=== PATIENT | female | born 1945 | race Caucasian/White ===

== ENCOUNTER → 2020-08-24 | Outpatient (CLI) | payer MEDICARE ==
[~2020-08-24] MED LIST: ATOR10 PO; CARV25 PO; FURO40 PO; LISI5 PO; XARELTO20 MG PO
== END | disposition home or self-care (01) ==
LOC: PLD 15:44
DX: N39.0 Urinary tract infection, site not specified (principal)
CPT/HCPCS: 87077; 87086; 87186

== ENCOUNTER 2023-04-22 08:54 | Day surgery (SDC) | payer MEDICARE ==
[2023-04-22] VITALS (7 sets, daily range): BP systolic 106–155; BP diastolic 43–90
[~2023-04-22 08:54] MED LIST changes: +WARF5 PO
--- NOTE | 2023-04-22 10:45 | NUR ---
PATIENT RETURNED FROM [facility]IA [facility] WITH A TR BAND IN PLACE. 10 ML OF AIR IN THE BAND. SITE CHECKED AND NO BLEEDING, NO HEMATOMA NOTED. PATIENT PLACED ON THE MONITOR AND CALL LIGHT IN REACH. AT THE BEDSIDE.
--- NOTE | 2023-04-22 11:13 | NUR ---
TR BAND RIGHT RADIAL SITE CDI, NO BLEEDING NO HEMATOMA. PLETH WITH GOOD WAVEFORM.
--- NOTE | 2023-04-22 11:49 | NUR ---
AIR REMOVED FROM THE TR BAND. TR BAND FLAT AND NO BLEEDING. NO HEAMTOMA NOTED. LOW HR OF 40 NOTED ON MONITOR.
--- NOTE | 2023-04-22 12:05 | NUR ---
LUNCH SERVED. ONCE ACTIVITY NOTED HR INCREASED.
--- NOTE | 2023-04-22 12:14 | NUR ---
DR. GAMEZ NOTIFIED OF LOW HR, ASYMPTOMATIC, AT REST. NO NEW ORDERS.
--- NOTE | 2023-04-22 12:51 | NUR ---
TR BAND REMOVED AND RIGHT RADIAL CLEANED. CLOTH DOT APPLIED. WHITE BOARD REAPPLIED. PIV REMOVED AND CATH TIP INTACT. PRESSURE DRESSING APPLIED. VVS. PATIENT ALLOWED TO GET UP ADN DRESSED WITH 'S ASSIST. ALL DISCHARGE INSTRUCTIONS WERE REVIEWED AND QUESTIONS ANSWERED AND COPIES GIVEN TO THE PATIENT.
--- NOTE | 2023-04-22 13:16 | NUR ---
PATIENT DISCHARGED HOME VIA WHEELCHAIR WITH
== END 2023-04-22 13:00 | disposition home or self-care (01) ==
LOC: MHTC 08:54
DX: R06.09 Other forms of dyspnea (principal); I25.10 Atherosclerotic heart disease of native coronary artery without angina pectoris; I10 Essential (primary) hypertension; I48.20 Chronic atrial fibrillation, unspecified; I42.9 Cardiomyopathy, unspecified; E78.5 Hyperlipidemia, unspecified
CPT/HCPCS: 76937; 93458; 99152; C1769; C1887; C1894; J1644; J2250; J3010; J7030; J7050; Q9967

== ENCOUNTER 2023-06-20 11:26 | Observation (INO) | payer MEDICARE ==
[~2023-06-20] VITALS: Ht 160 cm; Wt 61.7 kg
[2023-06-20] VITALS (8 sets, daily range): BP systolic 96–171; BP diastolic 71–97
[~2023-06-20 11:26] MED LIST changes: -CARV25 PO; +CARV6.25 PO
[2023-06-20 12:20] LABS: BASOPHILS ABSOLUTE AUTO 0.05 K/mm3 (0.00-0.23); BASOPHILS PERCENT AUTO 1 % (0-2); EOSINOPHILS ABSOLUTE AUTO 0.26 K/mm3 (0.00-0.68); EOSINOPHILS PERCENT AUTO 3 % (0-6); Hematocrit 41.3 % (33.0-51.0); Hemoglobin 14.3 g/dL (11.5-16.0); IMMATURE GRAN ABSOLUTE AUTO 0.03 K/mm3 (0.00-0.10); IMMATURE GRAN PERCENT AUTO 0 % (0-1); LYMPHOCYTES ABSOLUTE AUTO 2.16 K/mm3 (0.84-5.20); LYMPHOCYTES PERCENT AUTO 27 % (21-46); MONOCYTES ABSOLUTE AUTO 0.53 K/mm3 (0.16-1.47); MONOCYTES PERCENT AUTO 7 % (4-13); Mean Corpuscular HGB 32.4 pg (26.0-34.0); Mean Corpuscular HGB Conc 34.6 g/dL (31.5-36.5); Mean Corpuscular Volume 93 fL (80-100); NEUTROPHILS ABSOLUTE AUTO 4.95 K/mm3 (1.96-9.15); NEUTROPHILS PERCENT AUTO 62 % (41-73); RDW Coefficient Variation 12.4 % (11.7-14.2); RDW Standard Deviation 42.9 fL (35.1-46.3); Red Blood Cell Count 4.42 M/mm3 (3.80-5.20); White Blood Cell Count 7.98 K/mm3 (4.00-11.30)
[2023-06-20 12:28] LABS: Albumin, Blood 3.6 g/dL (3.4-5.0); Bun/Creatinine Ratio 25.2 (12.0-20.0); Calcium, Blood 9.2 mg/dL (8.5-10.1); Creatinine, Blood 0.75 mg/dL (0.40-1.00); Globulin, Blood 3.5 g/dL (2.2-4.0); Potassium, Blood 3.9 mmol/L (3.5-5.5); Total Protein, Blood 7.1 g/dL (6.4-8.2)
[2023-06-20 15:12] LABS: Source, Urine Clean Catch
[2023-06-20 15:46] LABS: Appearance, Urine Clear (Clear); Bilirubin, Urine Neg (Neg); Blood, Urine Neg (Neg); Color, Urine Yellow (P-Yellow); Glucose Qualitative, Urine Neg (Neg); Ketones, Urine 2+ (Neg); Leukocyte Esterase, Urine 1+ (Neg); Nitrite, Urine Neg (Neg); Protein, Urine Neg (Neg); Urobilinogen, Urine NORM (Normal)
[2023-06-20 16:15] LABS: Bacteria Rare /hpf; Red Blood Cells, Urine 0-2 /hpf (0-2); Squamous Epithelial Cells Rare /hpf (Few)
[2023-06-20 20:21] LABS: International Normalized Ratio 2.49; Prothrombin Time Results 24.8 Sec (9.7-11.5)
--- NOTE | 2023-06-20 20:40 | NUR ---
ASSUMPTION OF CARE: RECEIVED REPORT FROM ER NURSE ERNESTO AT APPROX 2030. PT ARRIVED TO PCU VIA WHEELCHAIR. ALERT AND ORIENTED TO TIME, PERSON, PLACE AND SITUATION. ABLE TO ANSWER QUESTIONS AND MAKE NEEDS KNOWN. ABLE TO STAND AND TRANSFER TO BED WITH NURSE ASSIST. DENIES ANY DIZZINESS, LIGHTHEADEDNESS AT THIS TIME. 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 DENIES ANY CHEST PAIN OR PRESSURE. SBP 150'S. ON RA WITH SPO2 >95%. NO C/O SOB. ABLE TO AMBULATE TO THE BATHROOM WITH ASSISTANCE, VOIDING YELLOW URINE WITH NO ISSUES. 20 GAUGE PIV TO THE RIGHT AC. FLUSHES AND DRAWS WELL WITH NO COMPLAINTS. SALINE LOCKED AT THIS TIME. ABLE TO TAKE PO MEDS WITH NO ISSUES. AT THE BEDSIDE, UPDATED TO PLAN OF CARE. PT HAS ALL BELONGINGS WITH HER AT THIS TIME.
[2023-06-21] VITALS (8 sets, daily range): BP systolic 99–159; BP diastolic 41–81
[2023-06-21 04:34] LABS: International Normalized Ratio 2.42; Prothrombin Time Results 24.2 Sec (9.7-11.5)
--- NOTE | 2023-06-21 06:15 | NUR ---
SHIFT SUMMARY: PT ALERT AND ORIENTED X4 T/O THE SHIFT. ABLE TO ANSWER QUESTIONS, FOLLOW COMMANDS AND MAKE NEEDS KNOWN. REMAINS ON RA WITH SATS >94%. DENIES SOB. CARDIAC MONITORING IN PLACE, ATRIAL FIBRILLATION WITH RATE 70'S-80'S. SBP 120'S. DENIES CHEST PAIN, PRESSURE OR LIGHTHEADEDNESS. ABLE TO AMBULATE TO THE BATHROOM WITH A MINIMAL ASSIST. VOIDING YELLOW URINE. NO BM T/O THE SHIFT. RAC PIV REMAINS IN TACT AND SALINE LOCKED. ABLE TO REPOSITION SELF IN BED T/O THE SHIFT. ABLE TO TOLERATE PO MEDS AND WATER. CALL LIGHT IN REACH.
--- NOTE | 2023-06-21 07:52 | NUR ---
Pt reports no pain/dyspnea/discomfort. STates that she takes coumadin for her afib; last dose was Saturday at home. Reports annual echocardiogram and also angiogram last month.
--- NOTE | 2023-06-21 10:52 | NUR ---
[address] and Dr[address] Reddy, pt can eat. Cardiology will be around to see her later today. Dr. Caldwell rounded on the pt.
--- NOTE | 2023-06-21 11:00 | NUR ---
Pt reports that she started having a headache across her forehead about half an hour ago, and it is coming and going, but also giving her blurry vision. No other symptoms at this time. States that she does not normally get headaches, and that although she drinks coffee every morning, she has not skipped her coffee.
--- NOTE | 2023-06-21 11:22 | NUR ---
Dr. Caldwell was notified by phone of pt's symptoms earlier.
--- NOTE | 2023-06-21 11:45 | NUR ---
Pt states that she is having an odd feeling in her head, almost as if the headache is starting up again, and that her eyes feel funny. Neuro checks done, all WNL. Notified by cath lab tech that heart rate briefly dropped to 40s, and is now 55-61 bpm. Noted blood pressure has dropped significantly since this morning, from 159/96 to now 99/51, after taking 12.5 mg coreg. Pt states that her syncopal episode yesterday took place about an hour after she took her morning medications. Reinforced to patient that she should request staff assistance during transfers to and from the bathroom and bed to avoid any injury from falling or loss of consciousness. She verbalized assent. This was all reported to Dr. Caldwell by phone.
--- NOTE | 2023-06-21 16:00 | NUR ---
Standing blood pressure after 5 minutes: 140/81, heart rate 74 bpm Lying blood pressure after 5 minutes: 143/69 , heart rate [address] Coker instructions, with him at the bedside.
--- NOTE | 2023-06-21 16:06 | NUR ---
Dr. Reddy was here to see the patient.
--- NOTE | 2023-06-21 19:07 | NUR ---
Telephone report given to DEUCE Ramirez. The pt and her are in the room. She reports no symptoms. Suggested orthostatic vital signs to be taken by maintenance supervisor 2nd shift RN, and also encouraged pt to ambulate with staff standby assistance to evaluate her syptoms with change in Coreg dose.
[2023-06-22 00:24] VITALS: BP 144/76
[2023-06-22 03:51] VITALS: BP 148/80
[2023-06-22 04:14] LABS: International Normalized Ratio 1.91; Prothrombin Time Results 19.3 Sec (9.7-11.5)
[2023-06-22 04:15] LABS: BASOPHILS ABSOLUTE AUTO 0.04 K/mm3 (0.00-0.23); BASOPHILS PERCENT AUTO 1 % (0-2); EOSINOPHILS ABSOLUTE AUTO 0.36 K/mm3 (0.00-0.68); EOSINOPHILS PERCENT AUTO 5 % (0-6); Hematocrit 37.7 % (33.0-51.0); Hemoglobin 12.8 g/dL (11.5-16.0); IMMATURE GRAN ABSOLUTE AUTO 0.03 K/mm3 (0.00-0.10); IMMATURE GRAN PERCENT AUTO 0 % (0-1); LYMPHOCYTES ABSOLUTE AUTO 2.86 K/mm3 (0.84-5.20); LYMPHOCYTES PERCENT AUTO 36 % (21-46); MONOCYTES ABSOLUTE AUTO 0.65 K/mm3 (0.16-1.47); MONOCYTES PERCENT AUTO 8 % (4-13); Mean Corpuscular Volume 94 fL (80-100); NEUTROPHILS ABSOLUTE AUTO 3.91 K/mm3 (1.96-9.15); NEUTROPHILS PERCENT AUTO 50 % (41-73); RDW Coefficient Variation 12.3 % (11.7-14.2); RDW Standard Deviation 43.4 fL (35.1-46.3); White Blood Cell Count 7.85 K/mm3 (4.00-11.30)
[2023-06-22 04:26] LABS: Albumin, Blood 2.8 g/dL (3.4-5.0); Albumin/Globulin Ratio 0.9 (0.8-1.8); Bilirubin, Total 0.6 mg/dL (0.1-1.0); Bun/Creatinine Ratio 30.4 (12.0-20.0); Calcium, Blood 8.7 mg/dL (8.5-10.1); Creatinine, Blood 0.89 mg/dL (0.40-1.00); Globulin, Blood 3.2 g/dL (2.2-4.0); Potassium, Blood 4.1 mmol/L (3.5-5.5)
[2023-06-22 04:50] LABS: Mean Platelet Volume 10.5 fL (9.1-12.4)
[2023-06-22 04:51] LABS: Platelet Count 114 K/mm3 (150-400)
--- NOTE | 2023-06-22 06:22 | NUR ---
SHIFT SUMMARY PATIENT ALERT AND ORIENTED X4. HAD NO COMPLAINTS OF CHEST PAIN OR SHORTNESS OF BREATH. ON ROOM AIR WITH SPO2 IN HIGH 90'S. VITAL SIGNS STABLE, RATE CONTROLLED AFIB ON TELE. NO ACUTE ISSUES NOTED OVERNIGHT. WILL CONTINUE TO MONITOR. CALL LIGHT WITHIN REACH.
[2023-06-22 07:11] VITALS: BP 151/75
--- NOTE | 2023-06-22 07:22 | NUR ---
AM NOTE PT IS ALERT AND ORIENTED X 4, SHE IS IN RECLINER CHAIR. SHE REPORTED FEELING A BIT LIGHTHEADED AND SOB WHILE SITTING, BP ASSESSED AND IS STABLE, HR STABLE IN 60'S, SPO2 96% VIA RA, WILL CONTINUE TO MONITOR. SHE IS ABLE TO MAKE HER NEEDS KNOWN, SHE REPORTED AND OCCASSIONAL PRODUCTIVE COUGH BUT STATED "I ALWAYS COUGH UP STUFF IN THE MORNINGS." CALL LIGHT W/IN REACH.
[2023-06-22 08:19] VITALS: BP 115/57
[2023-06-22 10:17] VITALS: BP 139/79
--- NOTE | 2023-06-22 10:23 | NUR ---
CARE NOTE PT WALKED AROUND PCU UNIT W/ SARBJIT AMARO. PER PT REPORT, SHE FELT SLIGHTLY SOB BUT DENIED FEELING LIGHTHEADED/DIZZY. BP AND HR STABLE, SPO2 97% VIA RA.
--- NOTE | 2023-06-22 14:10 | NUR ---
DISCHARGE NOTE PT WAS ALERT AND ORIENTED X 4, VSS. SHE DENIED FEELINGS OF CHEST PAIN/PRESSURE, SHE REPORTED FEELING SLIGHTLY SOB UPON AMBULATION BUT DENIED FEELING LIGHTHEADED/DIZZY. HER WAS ALSO AT BEDSIDE DURING DISCHARGE INSTRUCTIONS. THIS NURSE DISCUSSED D/C INSTRUCTIONS W/ THE PT INCLUDING MEDICATIONS, FOLLOW UP APPOINTMENTS. IV'S WERE REMOVED BY THIS RN. PT LEFT PCU VIA WHEELCHAIR ESCORTED BY THIS RN AT APPROX. 1245. PT WAS STABLE UPON DISCHARGE.
== END 2023-06-22 12:47 | disposition home or self-care (01) ==
LOC: ER 11:26 → PCU 11:27
PROVIDERS: Internal Medicine; Nurse Practitioner Acute Care; Physician Assistant; ADMIT Internal Medicine
DX: I95.1 Orthostatic hypotension (principal); I42.0 Dilated cardiomyopathy; I48.91 Unspecified atrial fibrillation; I13.0 Hypertensive heart and chronic kidney disease with heart failure and stage 1 through stage 4 chronic kidney disease, or unspecified chronic kidney disease; I50.22 Chronic systolic (congestive) heart failure; N18.9 Chronic kidney disease, unspecified; E78.5 Hyperlipidemia, unspecified; E55.9 Vitamin D deficiency, unspecified
CPT/HCPCS: 36415; 80053; 81001; 83690; 83735; 84443; 84484; 85025; 85379; 85610; 87086; 93005; 93010; 93246; 99285-25; A9270; G0378

== ENCOUNTER 2024-03-11 18:18 | Emergency (ER) | payer MEDICARE ==
[~2024-03-11] VITALS: Ht 167.6 cm; Wt 56.7 kg
[2024-03-11 19:42] LABS: BASOPHILS ABSOLUTE AUTO 0.08 K/mm3 (0.00-0.23); BASOPHILS PERCENT AUTO 1 % (0-2); EOSINOPHILS ABSOLUTE AUTO 0.28 K/mm3 (0.00-0.68); EOSINOPHILS PERCENT AUTO 4 % (0-6); Hematocrit 38.2 % (33.0-51.0); Hemoglobin 13.4 g/dL (11.5-16.0); IMMATURE GRAN ABSOLUTE AUTO 0.03 K/mm3 (0.00-0.10); IMMATURE GRAN PERCENT AUTO 0 % (0-1); LYMPHOCYTES ABSOLUTE AUTO 2.51 K/mm3 (0.84-5.20); LYMPHOCYTES PERCENT AUTO 33 % (21-46); MONOCYTES ABSOLUTE AUTO 0.67 K/mm3 (0.16-1.47); MONOCYTES PERCENT AUTO 9 % (4-13); Mean Corpuscular HGB Conc 35.1 g/dL (31.5-36.5); Mean Corpuscular Volume 91 fL (80-100); NEUTROPHILS PERCENT AUTO 54 % (41-73); NRBC ABSOLUTE 0.05 K/mm3 (0.00-0.02); NRBC Auto 0.7 /100 WBC (0.0-0.2); RDW Coefficient Variation 12.7 % (11.7-14.2); RDW Standard Deviation 42.2 fL (35.1-46.3); Red Blood Cell Count 4.19 M/mm3 (3.80-5.20); White Blood Cell Count 7.67 K/mm3 (4.00-11.30)
[2024-03-11 19:44] LABS: International Normalized Ratio 1.45; Prothrombin Time Results 15.1 Sec (9.7-11.5)
[2024-03-11 20:00] LABS: Albumin, Blood 3.4 g/dL (3.4-5.0); Bilirubin, Total 0.8 mg/dL (0.1-1.0); Bun/Creatinine Ratio 32.5 (12.0-20.0); Calcium, Blood 9.5 mg/dL (8.5-10.1); Creatinine, Blood 0.8 mg/dL (0.40-1.00); Globulin, Blood 3.3 g/dL (2.2-4.0); Potassium, Blood 4.1 mmol/L (3.5-5.5); Total Protein, Blood 6.7 g/dL (6.4-8.2)
[2024-03-11 20:45] VITALS: BP 155/64
== END 2024-03-11 21:08 | disposition home or self-care (01) ==
LOC: ER 18:18
PROVIDERS: Emergency Medicine; Physician Assistant
DX: G45.9 Transient cerebral ischemic attack, unspecified (principal); Z79.899 Other long term (current) drug therapy; Z79.01 Long term (current) use of anticoagulants
CPT/HCPCS: 70450; 80053; 85025; 85610; 93005; 93010; 99285-25

== ENCOUNTER 2024-08-26 18:53 | Emergency (ER) | payer MEDICARE ==
[~2024-08-26] VITALS: Ht 154.9 cm; Wt 54.4 kg
[2024-08-26 19:09] VITALS: BP 136/115
[2024-08-26 19:53] LABS: Hemoglobin 14.7 g/dL (11.5-16.0); Mean Corpuscular HGB 33.1 pg (26.0-34.0); Mean Corpuscular HGB Conc 35.9 g/dL (31.5-36.5); Mean Corpuscular Volume 92 fL (80-100); NRBC ABSOLUTE 0.03 K/mm3 (0.00-0.02); NRBC Auto 0.3 /100 WBC (0.0-0.2); RDW Coefficient Variation 12.4 % (11.7-14.2); RDW Standard Deviation 42.3 fL (35.1-46.3); Red Blood Cell Count 4.44 M/mm3 (3.80-5.20); White Blood Cell Count 9.58 K/mm3 (4.00-11.30)
[2024-08-26 20:34] LABS: BASOPHILS PERCENT MAN 0 % (0-2); EOSINOPHILS PERCENT MAN 1 % (0-6); LYMPHOCYTES % ATYPICAL MANUAL 2 % (0-0); LYMPHOCYTES PERCENT MAN 30 % (21-46); MONOCYTES PERCENT MAN 4 % (4-13); SEG NEUTROPHILS PERCENT MAN 63 % (41-73); TOTAL CELLS COUNTED 100
[2024-08-26 20:41] LABS: IMMATURE GRAN ABSOLUTE AUTO 0.16 K/mm3 (0.00-0.10); IMMATURE GRAN PERCENT AUTO 2 % (0-1); LYMPHOCYTES ABSOLUTE AUTO 2.76 K/mm3 (0.84-5.20); LYMPHOCYTES PERCENT AUTO 29 % (21-46); MONOCYTES ABSOLUTE AUTO 0.67 K/mm3 (0.16-1.47); MONOCYTES PERCENT AUTO 7 % (4-13); NEUTROPHILS ABSOLUTE AUTO 5.68 K/mm3 (1.96-9.15); NEUTROPHILS PERCENT AUTO 59 % (41-73)
[2024-08-26 22:28] LABS: Source, Urine Clean Catch
[2024-08-26 22:59] LABS: Bilirubin, Urine Neg (Neg); Blood, Urine Neg (Neg); Glucose Qualitative, Urine Neg (Neg); Ketones, Urine Neg (Neg); Leukocyte Esterase, Urine 2+ (Neg); Nitrite, Urine Neg (Neg); Protein, Urine Neg (Neg); Urobilinogen, Urine NORM (Normal); pH, Urine 6.5 (5.0-8.0)
[2024-08-26 23:00] LABS: Appearance, Urine Clear (Clear); Color, Urine Pale Yellow (P-Yellow)
[2024-08-26 23:02] LABS: Bacteria Mod /hpf; Red Blood Cells, Urine 0-2 /hpf (0-2); Squamous Epithelial Cells Few /hpf (Few); White Blood Cells, Urine 0-2 /hpf (0-5)
== END 2024-08-27 01:05 | disposition home or self-care (01) ==
LOC: ER 18:53
PROVIDERS: Student in an Organized Health Care Education/Training Program
DX: K29.70 Gastritis, unspecified, without bleeding (principal); R91.1 Solitary pulmonary nodule; I48.91 Unspecified atrial fibrillation; I11.0 Hypertensive heart disease with heart failure; I50.9 Heart failure, unspecified; Z86.73 Personal history of transient ischemic attack (TIA), and cerebral infarction without residual deficits; Z79.01 Long term (current) use of anticoagulants; Z79.899 Other long term (current) drug therapy; Z88.8 Allergy status to other drugs, medicaments and biological substances
CPT/HCPCS: 74177; 81001; 83605; 83690; 84484; 85025; 87086; 93005; 93010; 99284-25; Q9967

== ENCOUNTER → 2024-10-01 | Outpatient (CLI) | payer MEDICARE ==
[2024-10-01 14:57] LABS: Bun/Creatinine Ratio 23.9 (12.0-20.0); Calcium, Blood 9.4 mg/dL (8.5-10.1); Creatinine, Blood 0.79 mg/dL (0.40-1.00); Potassium, Blood 4.2 mmol/L (3.5-5.5)
== END ==
LOC: LAB 12:19 → LAB SHORT 12:19
PROVIDERS: Family Medicine
DX: N18.9 Chronic kidney disease, unspecified (principal); I50.22 Chronic systolic (congestive) heart failure
CPT/HCPCS: 80048